=== PATIENT | female | born 1955 | race Two or more races ===

== ENCOUNTER 2017-12-13 16:06 | Inpatient (IN) | payer MEDICAID ==
--- NOTE | 2017-12-13 16:52 | ED Physician Chart ---
ED Chief Complaint/HPI - Patient Information Date Seen:: 12/13/17 Time Seen:: 16:30 Chief Complaint:: gtube removal History of Present Illness:: 62 yr old female with hx of brain aneurysm surgery with complication stroke spasticity trach gtube cva lt paralysis now eating pureed food and they want gtube removal ED Review of Systems - Review of Systems General/Constitutional: No fever ENT: No earache (neck contractures can not move to left and feet contractures and lt arm cotractures through out not able to move her left side) Cardio Vascular: No chest pain Pulmonary: No SOB GI: No vomiting Psychiatric: No anxiety Hematopoietic: No bruising Allergic/Immuno: No urticaria Neurological: No syncope (hx of seizures on keppra and hx of spasticity on baclofen 40 mg twice a day) ED Past Medical History - Past Medical History Past Medical History: Other (brain aneurysm trach hole gtube in place very adherent unable to move out ) ED Physical Exam - Physical Examination General/Constitutional: Alert (has rt bone flap brain surgery three times hydrocephaly and [employer] shunt in place on left) Eyes: Lids, conjuctiva normal Skin: Nl inspection ENMT: External ears, nose nl Other Neck comments:: spastic neck unable to turn fixed on left arm left fixed in position hyperexension at the elbow non mobile at lt shoulder or lt elbow Other Respiratory comments:: mnot expanding lt chest well Cardio Vascular: No murmur, gallop, rubs GI: No tenderness/rebounding/guarding Other Extremities comments:: spastic feet with hyperflexion ED Assessment - Assessment General Assessment: multiple medical problems cva ruptured brain anuerysm spasticity hemiplegia eating pureed food with g- tube imbedded for removal ED Septic Shock - . Is Septic Shock (SBP<90, OR Lactate>4 mmol\L) present?: No ED Reassessment (Disposition) - Diagnosis Diagnosis:: as previously for g-tube removal - Patient Disposition Discharge/Transfer:: Acute Care w/in this hosp Condition at Disposition:: Unchanged
[2017-12-13 17:17] LABS: % BASOPHILS 0.7 % (0.0-2.0); % EOSINOPHILS 3.6 % (0.0-5.0); % LYMPHOCYTES 37.4 % (20.0-50.0); % MONOCYTES 6.8 % (2.0-10.0); % NEUTROPHILS 51.5 % (40.0-80.0); EOSINOPHILE ABSOLUTE 0.2 Th/cmm (0.1-0.4); HEMOGLOBIN 14.1 gm/dL (12-16); LYMPHOCYTE ABSOLUTE 2.5 Th/cmm (1.5-3.0); MEAN CELL VOLUME 93.6 fl (81-100); MEAN CORPUSCULAR HEMOGLOBIN 33.1 pg (27.0-31.0); MEAN CORPUSCULAR HGB CONC 35.4 pg (28.0-36.0); MEAN PLATELET VOLUME 6.9 fl; MONOCYTE ABSOLUTE 0.5 Th/cmm (0.3-1.0); NEUTROPHILE ABSOLUTE 3.5 Th/cmm (1.8-8.0); PLATELET COUNT 307 Th/cmm (150-400); RED BLOOD COUNT 4.27 Mil/cmm (3.80-5.10); RED CELL DISTRIBUTION WIDTH 11.3 % (11.5-20.0); WHITE BLOOD COUNT 6.7 Th/cmm (4.8-10.8)
[2017-12-13 17:29] LABS: ALB/GLOB RATIO 1.4 (1.0-1.8); ALBUMIN 4.1 gm/dL (3.7-5.3); ALKALINE PHOSPHATASE 161 U/L (34-104); ANION GAP 11.6 (7.0-16.0); BILIRUBIN,TOTAL 0.3 mg/dL (0.3-1.0); BUN - UREA NITROGEN 12 mg/dL (7-25); CALCIUM SERUM 9.7 mg/dL (8.6-10.3); CHLORIDE 104 mEq/L (98-107); CREATININE - SERUM 0.6 mg/dL (0.6-1.2); GFR AFRICAN-AMERICAN > 60.0 ml/min (>90); GFR NON AFRICAN-AMERICAN > 60.0 ml/min; GLUCOSE 107 mg/dL (70-105); POTASSIUM SERUM 3.6 mEq/L (3.5-5.1); SGOT 24 U/L (13-39); SGPT/ALT 42 U/L (7-52); SODIUM SERUM 138 mEq/L (136-145); TOTAL PROTEIN,SERUM 7.1 gm/dL (6.0-8.3)
[2017-12-13 20:14] VITALS: BP 135/85
[2017-12-13] MEDS ORDERED: Albuterol Nebulizer 2.5mg/3mL HHN PRN (21:08)
[2017-12-14 05:47] LABS: % BASOPHILS 0.4 % (0.0-2.0); % EOSINOPHILS 1.7 % (0.0-5.0); % LYMPHOCYTES 19.8 % (20.0-50.0); % MONOCYTES 6.3 % (2.0-10.0); % NEUTROPHILS 71.8 % (40.0-80.0); EOSINOPHILE ABSOLUTE 0.1 Th/cmm (0.1-0.4); HEMATOCRIT 39.3 % (41.0-60); HEMOGLOBIN 13.8 gm/dL (12-16); LYMPHOCYTE ABSOLUTE 1.3 Th/cmm (1.5-3.0); MEAN CORPUSCULAR HGB CONC 35.1 pg (28.0-36.0); MEAN PLATELET VOLUME 7.1 fl; MONOCYTE ABSOLUTE 0.4 Th/cmm (0.3-1.0); PLATELET COUNT 292 Th/cmm (150-400); RED BLOOD COUNT 4.19 Mil/cmm (3.80-5.10); RED CELL DISTRIBUTION WIDTH 11.7 % (11.5-20.0); WHITE BLOOD COUNT 6.8 Th/cmm (4.8-10.8)
[2017-12-14 06:16] LABS: ALB/GLOB RATIO 1.2 (1.0-1.8); ALBUMIN 3.8 gm/dL (3.7-5.3); ALKALINE PHOSPHATASE 154 U/L (34-104); ANION GAP 13.6 (7.0-16.0); BILIRUBIN,TOTAL 0.4 mg/dL (0.3-1.0); BUN - UREA NITROGEN 11 mg/dL (7-25); CALCIUM SERUM 9.9 mg/dL (8.6-10.3); CARBON DIOXIDE 24.3 mEq/L (21.0-31.0); CHLORIDE 106 mEq/L (98-107); CREATININE - SERUM 0.6 mg/dL (0.6-1.2); GFR AFRICAN-AMERICAN > 60.0 ml/min (>90); GFR NON AFRICAN-AMERICAN > 60.0 ml/min; GLUCOSE 112 mg/dL (70-105); POTASSIUM SERUM 3.9 mEq/L (3.5-5.1); SGOT 20 U/L (13-39); SGPT/ALT 37 U/L (7-52); SODIUM SERUM 140 mEq/L (136-145)
[2017-12-14] MEDS: D5-0.45NS 1,000 ML IV SCH ×2 (08:41→21:47)
[2017-12-14] MEDS: Levetiracetam 500 mg/5mL 5mL UDSyr *for ORAL USE ONLY GT SCH ×2 (08:42→16:10)
[2017-12-14] MEDS: Vitamin D3 2,000 IU SGL PO SCH (08:42)
[2017-12-14] MEDS: Lactulose 10 Gm/15 mL 30mL UDC GT SCH ×2 (08:42→16:11)
[2017-12-14] MEDS: Chlorhexidine Gluconate 0.12% 480mL Bottle MM SCH ×2 (08:43→16:12)
[2017-12-14] MEDS ORDERED: Non-Formulary Item 1 EA (Protein Hydrolysate,Milk [Liquid Protein Fortifier] 30 ML) GT SCH (09:00)
--- NOTE | 2017-12-14 09:30 | Diagnostic Imaging Report ---
Chest x-ray single view History: Shortness of breath Comparison: None The heart size is normal. No focal pulmonary parenchymal processes. No hilar or mediastinal abnormalities. Impression: No acute abnormalities
--- NOTE | 2017-12-14 09:30 | Diagnostic Imaging Report ---
Exam: KUB of the abdomen. HISTORY: G-tube removal. Findings: Supine examination the abdomen reviewed the study demonstrates fecal impaction. Gastrostomy tube overlying the stomach. Inferior vena cava filter is noted. The chest at shunt catheter is noted. Bony structures intact. IMPRESSION: Impaction.
--- NOTE | 2017-12-14 09:36 | Consultation ---
DATE OF CONSULTATION: 12/14/2017 INPATIENT GASTROINTESTINAL CONSULTATION CONSULTING PHYSICIAN: Dr. Burgos. REASON FOR CONSULTATION: Removal of her G-tube. HISTORY OF PRESENT ILLNESS: The patient is a 62-year-old female with history of brain aneurysm, which was complicated by a stroke that transiently had required tracheostomy tube and G-tube for feeding. However, the patient has recovered the ability to eat and is tolerating diet and wishes to have her G-tube removed. Apparently, this was attempted in the Emergency Room, but the ER physician was unable to remove the G-tube as it was stiff, but the patient was admitted for this reason. She currently has no complaints, would like the G-tube removed. PAST MEDICAL HISTORY: Brain aneurysm with a previous stroke causing paralysis and dysphagia transiently. PAST SURGICAL HISTORY: G-tube placement, tracheostomy placement. FAMILY HISTORY: Noncontributory. SOCIAL HISTORY: The patient does not smoke, drink or use illicit drugs. She is a resident of a nursing facility. ALLERGIES: SHE REPORTS AN ALLERGY TO PHENYTOIN. CURRENT MEDICATIONS: Tylenol, albuterol, artificial tears, baclofen, bisacodyl, chlorhexidine, famotidine, heparin subQ, hydralazine, ibuprofen, lacosamide, lactulose, Keppra, psyllium, senna, tizanidine, vitamin D. REVIEW OF SYSTEMS: A 12-point review of systems was performed. The patient is negative other than the pertinent positives mentioned in the history of present illness. PHYSICAL EXAMINATION: VITAL SIGNS: Blood pressure is 148/81, pulse 99 beats per minute, temperature 99.8, oxygenation 96%. GENERAL: The patient is lying flat in bed, alert, oriented x 3. She is in no apparent distress. HEAD, EYES, EARS, NOSE AND THROAT: Normocephalic, atraumatic appearing head. Pupils are equal and reactive to light. Extraocular muscles appear to be intact. Moist mucous membranes. NECK: There is a previously healed tracheostomy site. CHEST: Reduced breath sounds with some crackles at the bases. CARDIOVASCULAR: S1, S2 present, tachycardic. ABDOMEN: There is a G-tube in the left upper quadrant. It appears to be old. The site appears clean, dry and intact without erythema. There is no abdominal tenderness. Soft on palpation. No guarding. EXTREMITIES: Contracted pitting edema bilaterally. Pulses are not present. SKIN: There is no obvious jaundice. LABORATORY DATA: White blood cell count is 6.8, hemoglobin 13.8, platelet count 292. Sodium 140, BUN 11, creatinine 0.6, total bilirubin 0.4, AST 20, ALT 37. No abdominal imaging has yet been performed. IMPRESSION: This is a 62-year-old female with a previous brain aneurysm and stroke requiring a previous G-tube placement and tracheostomy. The patient has since recovered the ability to eat and is on a pureed diet and wishes to have her G-tube removed. RECOMMENDATIONS: 1. Dysphagia with previous G-tube. 2. Brain aneurysm, previous stroke. DISCUSSION: Given that patient is able to tolerate a pureed diet at this point, it is reasonable to remove her G-tube as she does not want this for infection. The G-tube has been removed at bedside by myself using the pull traction method. This was a little bit stiff coming out, but then eventually was able to be removed without issue. There was a small amount of bleeding from the gastrocutaneous fistula and a bandage was placed over this and taped in place. RECOMMENDATIONS: 1. We will watch the site of the previous G-tube for any signs of bleeding or infection going forward. 2. Maintain n.p.o. for at least 24 hours to try to let this gastrocutaneous close before we can put her back on her diet. In the meantime, we will have her on D5 half NS 75 mL an hour. 3. Management of the patient's other chronic issue as per primary. Thank you for allowing me to participate in her care. Please call with any further questions. JOB# [id number]
--- NOTE | 2017-12-14 09:43 | History and Physical ---
History of Present Illness - HPI Chief Complaint: DC PEG-tube HPI: Patient was send from SNF to discontinue PEG tube. Vital Signs: Last Vital Signs Temp 99.8 F 12/14/17 04:00 Pulse 93 12/14/17 07:00 Resp 16 12/14/17 07:00 BP 148/81 12/14/17 04:00 Pulse Ox 96 12/14/17 07:00 Past Medical History Cardiovascular: Report: No Pertinent Hx Pulmonary: Report: No Pertinent Hx NURSING INFORMATION SYSTEMS COORDINATOR: Report: CVA, Other (Hx of Brain aneurism with left side hemiparalysis) Psych: Report: No Pertinent Hx Musculoskeletal: Report: Other (Hemiparalysis left side) Rheumatologic: Report: No pertinent Hx Infectious Disease: Report: No Pertinent Hx Renal/: Report: No Pertinent Hx Endocrine: Report: No Pertinent Hx, Hyperthyroidism - Past Surgical History Past Surgical History: Other (Craniotomy) Family Medical History - Family Member Sister History Unknown: Yes Social History Smoke: No Alcohol: None Drugs: None Lives: [facility] Domestic Violence: Negative - Medications Home Medications: Home Medication Medication Instructions Recorded Type Acetaminophen [Tylenol 160 mg GT Q4HR PRN 12/13/17 History 650mg/20.3mL Suspension] Albuterol Nebulizer 2.5mg/3mL 2.5 mg IH Q4HR PRN 12/13/17 History [Albuterol Neb UD*] Baclofen [Baclofen*] 40 mg GT TID 12/13/17 History Bisacodyl [Dulcolax 10 Mg Supp] 10 mg RC DAILY PRN 12/13/17 History Chlorhexidine Gluconate [Peridex] 5 ml MM BID 12/13/17 History Cholecalciferol (Vitamin D3) 2,000 iu GT DAILY 12/13/17 History [Vitamin D3] Dextran 70/Hypromellose 1 each OP HS PRN 12/13/17 History [Artificial Tears] Heparin Sod,Porcine/0.9 % NaCl 5,000 unit SUBQ Q12H 12/13/17 History [Heparin 5,000 Unit/5 ml-Ns] Hydralazine [Apresoline*] 25 mg GT Q6H PRN 12/13/17 History Ibuprofen 600 mg GT TID PRN 12/13/17 History Lacosamide [Vimpat] 100 mg GT BID 12/13/17 History Lactulose 45 ml GT BID 12/13/17 History Levetiracetam [Keppra*] 1,000 mg GT BID 12/13/17 History Protein Hydrolysate,Milk [Liquid 30 ml GT DAILY 12/13/17 History Protein Fortifier] Psyllium [Metamucil] 1 pkt GT BID 12/13/17 History Ranitidine HCl [Zantac] 150 mg GT DAILY 12/13/17 History Sennakot 8.6 mg GT HS 12/13/17 History Tizanidine HCl [Zanaflex] 2 mg GT BID 12/13/17 History - Allergies Allergies/Adverse Reactions: Allergies Allergy/AdvReac Type Severity Reaction Status Date / Time phenytoin Allergy Verified 12/13/17 16:51 Review of Systems - Review of Systems Constitutional: Report: No Significant Eyes: Report: No Significant ENT: Report: No Significant Respiratory: Report: No Significant Cardiovascular: Report: No Significant Genitourinary: Report: No Significant Musculoskeletal: Report: Other (Hemiparalysis left side) Skin: Report: No Significant Neurological: Report: Weakness, Seizures Physical Exam - Physical Exam HEENT: Report: Ears Nose Throat within normal limits Neck: Report: Within normal limits Cardiovascular Systems: Report: Regular, Rate and Rhythm Respiratory: Report: Breath Sounds are within normal limits Abdomen: Report: Non-tender to palpation, PEG site is clean Back: Report: Inspection of back is within normal limits. Extremities: Report: Non-tender to palpation., Extremities are contracted, Other (Hemiparalysis left side) Skin: Report: Color of skin is within normal limits Neuro/Psych: Report: Mood affect is within normal limits, Weakness or sensory loss noted. - Lab Results All Lab Results last 24 hours: Laboratory Results - last 24 hr 12/13/17 12/13/17 12/14/17 17:10 17:10 05:00 WBC 6.7 6.8 RBC 4.27 4.19 Hgb 14.1 13.8 Hct 40.0 L 39.3 L MCV 93.6 94.0 MCH 33.1 H 33.0 H MCHC Differential 35.4 35.1 RDW 11.3 L 11.7 Plt Count 307 292 MPV 6.9 7.1 Neutrophils % 51.5 71.8 Lymphocytes % 37.4 19.8 L Monocytes % 6.8 6.3 Eosinophils % 3.6 1.7 Basophils % 0.7 0.4 Sodium 138 Potassium 3.6 Chloride 104 Carbon Dioxide 26.0 Anion Gap 11.6 BUN 12 Creatinine 0.6 Est GFR ( Amer) > 60.0 Est GFR (Non-Af Amer) > 60.0 BUN/Creatinine Ratio 20.0 Glucose 107 H Calcium 9.7 Total Bilirubin 0.3 AST 24 ALT 42 Alkaline Phosphatase 161 H Total Protein 7.1 Albumin 4.1 Globulin 3.0 Albumin/Globulin Ratio 1.4 TSH 12/14/17 12/14/17 05:00 05:00 WBC RBC Hgb Hct MCV MCH MCHC Differential RDW Plt Count MPV Neutrophils % Lymphocytes % Monocytes % Eosinophils % Basophils % Sodium 140 Potassium 3.9 Chloride 106 Carbon Dioxide 24.3 Anion Gap 13.6 BUN 11 Creatinine 0.6 Est GFR ( Amer) > 60.0 Est GFR (Non-Af Amer) > 60.0 BUN/Creatinine Ratio 18.3 Glucose 112 H Calcium 9.9 Total Bilirubin 0.4 AST 20 ALT 37 Alkaline Phosphatase 154 H Total Protein 7.0 Albumin 3.8 Globulin 3.2 Albumin/Globulin Ratio 1.2 TSH 2.43 - Assessment Assessment: Current Active Problems Problem Status Onset REQUEST FOR PEG REMOVAL Acute Patient is awake, alert, calm, in no acute distress. Dx: Peg in place, Hx of brain aneurism, Hx of craniotomy, Seizure disorder, COPD, S/P DVT, S/P shunt. - Plan Plan: PEG will be discontinue by GI, will continue with SNF meds. Will continue to monitor,
[2017-12-14] MEDS ORDERED: Polyvinyl Alcohol Ophth Soln 15 mL Bottle EACH EYE PRN (21:00)
--- NOTE | 2017-12-15 07:54 | GI Progress Note ---
Subjective - Review of Systems Service Date: 12/15/17 Subjective: No new events, previous G tube site c/d/i Objective - Results Result Diagrams: 12/14/17 05:00 12/14/17 05:00 Recent Labs: Laboratory Last Values WBC 6.8 Th/cmm (4.8-10.8) 12/14/17 05:00 RBC 4.19 Mil/cmm (3.80-5.10) 12/14/17 05:00 Hgb 13.8 gm/dL (12-16) 12/14/17 05:00 Hct 39.3 % (41.0-60) L 12/14/17 05:00 MCV 94.0 fl (81-100) 12/14/17 05:00 MCH 33.0 pg (27.0-31.0) H 12/14/17 05:00 MCHC Differential 35.1 pg (28.0-36.0) 12/14/17 05:00 RDW 11.7 % (11.5-20.0) 12/14/17 05:00 Plt Count 292 Th/cmm (150-400) 12/14/17 05:00 MPV 7.1 fl 12/14/17 05:00 Neutrophils % 71.8 % (40.0-80.0) 12/14/17 05:00 Lymphocytes % 19.8 % (20.0-50.0) L 12/14/17 05:00 Monocytes % 6.3 % (2.0-10.0) 12/14/17 05:00 Eosinophils % 1.7 % (0.0-5.0) 12/14/17 05:00 Basophils % 0.4 % (0.0-2.0) 12/14/17 05:00 Sodium 140 mEq/L (136-145) 12/14/17 05:00 Potassium 3.9 mEq/L (3.5-5.1) 12/14/17 05:00 Chloride 106 mEq/L (98-107) 12/14/17 05:00 Carbon Dioxide 24.3 mEq/L (21.0-31.0) 12/14/17 05:00 Anion Gap 13.6 (7.0-16.0) 12/14/17 05:00 BUN 11 mg/dL (7-25) 12/14/17 05:00 Creatinine 0.6 mg/dL (0.6-1.2) 12/14/17 05:00 Est GFR ( Amer) > 60.0 ml/min (>90) 12/14/17 05:00 Est GFR (Non-Af Amer) > 60.0 ml/min 12/14/17 05:00 BUN/Creatinine Ratio 18.3 12/14/17 05:00 Glucose 112 mg/dL (70-105) H 12/14/17 05:00 Calcium 9.9 mg/dL (8.6-10.3) 12/14/17 05:00 Total Bilirubin 0.4 mg/dL (0.3-1.0) 12/14/17 05:00 AST 20 U/L (13-39) 12/14/17 05:00 ALT 37 U/L (7-52) 12/14/17 05:00 Alkaline Phosphatase 154 U/L (34-104) H 12/14/17 05:00 Total Protein 7.0 gm/dL (6.0-8.3) 12/14/17 05:00 Albumin 3.8 gm/dL (3.7-5.3) 12/14/17 05:00 Globulin 3.2 gm/dL 12/14/17 05:00 Albumin/Globulin Ratio 1.2 (1.0-1.8) 12/14/17 05:00 TSH 2.43 uIU/ml (0.34-5.60) 12/14/17 05:00 - Physical Exam Vitals and I&O: Vital Signs Temp 98.3 F 12/15/17 04:00 Pulse 82 12/15/17 06:33 Resp 18 12/15/17 06:33 BP 117/68 12/15/17 04:00 Pulse Ox 94 12/15/17 06:33 Intake & Output 12/14/17 12/15/17 12/15/17 18:59 06:59 18:59 Intake Total 200 982.5 Balance 200 982.5 Weight (lbs) 91.626 kg 92.986 kg Intake: Intake, IV Amount 982.5 D5-0.45NS 1,000 ml @ 75 982.5 mls/hr IV .[id number] [facility] Rx #:[id number] Oral 200 Other: # Voids 3 3 # Bowel Movements 1 Weight Source Bedscale Bedscale Active Medications: Current Medications Acetaminophen (Tylenol 650mg/20.3ml Suspension) 650 mg GT Q4HR PRN PRN Reason: PAIN AND TEMP >100 Stop: 02/11/18 21:07 Last Admin: 12/14/17 14:03 Dose: 650 mg Albuterol Sulfate (Albuterol 2.5mg/3ml Neb Ud) 2.5 mg HHN Q4HR PRN PRN Reason: Wheezing Stop: 02/11/18 21:07 Artificial Tears (Artificial Tears Ophth Soln) 1 drop EACH EYE HS PRN PRN Reason: DRY EYES Stop: 02/12/18 20:59 Baclofen (Lioresal) 40 mg GT TID [facility] Stop: 02/12/18 08:59 Last Admin: 12/14/17 20:23 Dose: 40 mg Bisacodyl (Dulcolax 10 Mg Supp) 10 mg RC DAILY PRN PRN Reason: Constipation Stop: 02/11/18 21:07 Chlorhexidine Gluconate (Peridex) 5 ml MM BID [facility] Stop: 02/12/18 08:59 Last Admin: 12/14/17 16:12 Dose: 5 ml Famotidine (Pepcid) 20 mg GT DAILY [facility] Stop: 02/12/18 08:59 Last Admin: 12/14/17 08:43 Dose: 20 mg Heparin Sodium (Porcine) (Heparin) 5,000 units SUBQ Q12H [facility] Stop: 02/12/18 08:59 Last Admin: 12/14/17 20:23 Dose: 5,000 units Hydralazine HCl (Apresoline) 25 mg GT Q6H PRN PRN Reason: HTN Stop: 02/11/18 21:07 Dextrose/Sodium Chloride (D5-0.45ns) 1,000 mls @ 75 mls/hr IV .[id number] [facility] Stop: 02/12/18 08:14 Last Admin: 12/14/17 21:47 Dose: 75 mls/hr Ibuprofen (Motrin) 600 mg GT TID PRN PRN Reason: MODERATE PAIN Stop: 02/11/18 21:07 Lacosamide (Vimpat) 100 mg GT BID [facility] Stop: 02/12/18 08:59 Last Admin: 12/14/17 16:11 Dose: 100 mg Lactulose (Cephulac) 45 gm GT BID [facility] Stop: 02/12/18 08:59 Last Admin: 12/14/17 16:11 Dose: 45 gm Levetiracetam (Keppra) 1,000 mg GT BID [facility] Stop: 02/12/18 08:59 Last Admin: 12/14/17 16:10 Dose: 1,000 mg Psyllium Hydrophilic Mucilloid (Metamucil) 1 pkt GT BID [facility] Stop: 02/12/18 08:59 Last Admin: 12/14/17 16:11 Dose: 1 pkt Senna (Senna) 8.6 mg GT HS [facility] Stop: 02/12/18 20:59 Last Admin: 12/14/17 20:24 Dose: 8.6 mg Tizanidine HCl (Zanaflex) 2 mg GT BID [facility] Stop: 02/12/18 08:59 Last Admin: 12/14/17 16:12 Dose: 2 mg Vitamin D (Vitamin D3) 2,000 iu PO DAILY [facility] Stop: 02/12/18 08:59 Last Admin: 12/14/17 08:42 Dose: 2,000 iu General: Alert, Oriented x3 HEENT: Atraumatic Cardiovascular: Regular rate Abdomen: Bowel sounds, Soft, no Tender, no Hepatomegaly, no Splenomegaly, no Distended, no Rebound, no Mass Extremities: no Clubbing Neurological: no Normal gait Skin: no Rash Psych/Mental Status: Mental status NL Assessment/Plan - Problem List Patient Problems: All Active Problems REQUEST FOR PEG REMOVAL (Acute) - Assessment Assessment: # Brain aneurysm # CVA # Dysphagia # Previous G tube Pt now taking in nutrition by mouth, and had requested G tube be removed. This was performed at bedside without issue on 12/14. Her site appears c/d/i Plan: - can start feeding today. Slowly advance as tolerated - if dysphagia returns, will need another G tube inserted via endoscopy GI to see as needed, please call with any questions
[2017-12-15] MEDS: Lactulose 10 Gm/15 mL 30mL UDC GT SCH (08:41)
[2017-12-15] MEDS: Vitamin D3 2,000 IU SGL PO SCH (08:42)
[2017-12-15] MEDS: Levetiracetam 500 mg/5mL 5mL UDSyr *for ORAL USE ONLY GT SCH (08:42)
[2017-12-15] MEDS: Chlorhexidine Gluconate 0.12% 480mL Bottle MM SCH (08:42)
--- NOTE | 2017-12-15 09:36 | Discharge Summary ---
General Discharge Summary - Discharge Summary Date of Admission: 12/13/17 Admitting Diagnosis: Request of PEG removal. Discharge Date: 12/15/17 Discharge Diagnosis: PEG was removed, Hemiplegia, Hx of ropture of brain aneurism, Hx of Craniotomy, Seizure disorder, COPD, S/P DVT, S/P Shunt. Hospital Course: Patient was admmited and the following day PEG was removed, Patient was put in NPO and had IV NS, the second day patient was started with diet, PEG wound was no bleeding or liking. Condition at Discharge: Stable Disposition: Discharge/Transfered to SNF Home Medications: Home Medication Medication Instructions Recorded Type Acetaminophen [Tylenol 160 mg GT Q4HR PRN 12/13/17 History 650mg/20.3mL Suspension] Albuterol Nebulizer 2.5mg/3mL 2.5 mg IH Q4HR PRN 12/13/17 History [Albuterol Neb UD*] Baclofen [Baclofen*] 40 mg GT TID 12/13/17 History Bisacodyl [Dulcolax 10 Mg Supp] 10 mg RC DAILY PRN 12/13/17 History Chlorhexidine Gluconate [Peridex] 5 ml MM BID 12/13/17 History Cholecalciferol (Vitamin D3) 2,000 iu GT DAILY 12/13/17 History [Vitamin D3] Dextran 70/Hypromellose 1 each OP HS PRN 12/13/17 History [Artificial Tears] Heparin Sod,Porcine/0.9 % NaCl 5,000 unit SUBQ Q12H 12/13/17 History [Heparin 5,000 Unit/5 ml-Ns] Hydralazine [Apresoline*] 25 mg GT Q6H PRN 12/13/17 History Ibuprofen 600 mg GT TID PRN 12/13/17 History Lacosamide [Vimpat] 100 mg GT BID 12/13/17 History Lactulose 45 ml GT BID 12/13/17 History Levetiracetam [Keppra*] 1,000 mg GT BID 12/13/17 History Protein Hydrolysate,Milk [Liquid 30 ml GT DAILY 12/13/17 History Protein Fortifier] Psyllium [Metamucil] 1 pkt GT BID 12/13/17 History Ranitidine HCl [Zantac] 150 mg GT DAILY 12/13/17 History Sennakot 8.6 mg GT HS 12/13/17 History Tizanidine HCl [Zanaflex] 2 mg GT BID 12/13/17 History Inpatient Medications: Current Medications Acetaminophen (Tylenol 650mg/20.3ml Suspension) 650 mg GT Q4HR PRN PRN Reason: PAIN AND TEMP >100 Stop: 02/11/18 21:07 Last Admin: 12/14/17 14:03 Dose: 650 mg Albuterol Sulfate (Albuterol 2.5mg/3ml Neb Ud) 2.5 mg HHN Q4HR PRN PRN Reason: Wheezing Stop: 02/11/18 21:07 Artificial Tears (Artificial Tears Ophth Soln) 1 drop EACH EYE HS PRN PRN Reason: DRY EYES Stop: 02/12/18 20:59 Baclofen (Lioresal) 40 mg GT TID [facility] Stop: 02/12/18 08:59 Last Admin: 12/15/17 08:41 Dose: 40 mg Bisacodyl (Dulcolax 10 Mg Supp) 10 mg RC DAILY PRN PRN Reason: Constipation Stop: 02/11/18 21:07 Chlorhexidine Gluconate (Peridex) 5 ml MM BID [facility] Stop: 02/12/18 08:59 Last Admin: 12/15/17 08:42 Dose: 5 ml Famotidine (Pepcid) 20 mg GT DAILY [facility] Stop: 02/12/18 08:59 Last Admin: 12/15/17 08:42 Dose: 20 mg Heparin Sodium (Porcine) (Heparin) 5,000 units SUBQ Q12H [facility] Stop: 02/12/18 08:59 Last Admin: 12/15/17 08:42 Dose: 5,000 units Hydralazine HCl (Apresoline) 25 mg GT Q6H PRN PRN Reason: HTN Stop: 02/11/18 21:07 Dextrose/Sodium Chloride (D5-0.45ns) 1,000 mls @ 75 mls/hr IV .[id number] [facility] Stop: 02/12/18 08:14 Last Admin: 12/14/17 21:47 Dose: 75 mls/hr Ibuprofen (Motrin) 600 mg GT TID PRN PRN Reason: MODERATE PAIN Stop: 02/11/18 21:07 Lacosamide (Vimpat) 100 mg GT BID [facility] Stop: 02/12/18 08:59 Last Admin: 12/15/17 08:42 Dose: 100 mg Lactulose (Cephulac) 45 gm GT BID [facility] Stop: 02/12/18 08:59 Last Admin: 12/15/17 08:41 Dose: 45 gm Levetiracetam (Keppra) 1,000 mg GT BID [facility] Stop: 02/12/18 08:59 Last Admin: 12/15/17 08:42 Dose: 1,000 mg Psyllium Hydrophilic Mucilloid (Metamucil) 1 pkt GT BID [facility] Stop: 02/12/18 08:59 Last Admin: 12/15/17 08:42 Dose: 1 pkt Senna (Senna) 8.6 mg GT HS [facility] Stop: 02/12/18 20:59 Last Admin: 12/14/17 20:24 Dose: 8.6 mg Tizanidine HCl (Zanaflex) 2 mg GT BID [facility] Stop: 02/12/18 08:59 Last Admin: 12/15/17 08:42 Dose: 2 mg Vitamin D (Vitamin D3) 2,000 iu PO DAILY [facility] Stop: 02/12/18 08:59 Last Admin: 12/15/17 08:42 Dose: 2,000 iu Activity: As Tolerated Discharge Diet: Thickened Liquids Consults and Follow-Up: Mulugeta Burgos [Primary Care Provider] - Consulting Speciality: Neurology Instructions: Epilepsy, [id number], Hypertension, [id number]
[2017-12-15] MEDS: D5-0.45NS 1,000 ML IV SCH (11:25)
== END 2017-12-15 16:07 | DRG 254 ==
LOC: ER 16:06 → MSI 18:16
PROVIDERS: ADMIT General Practice; ATTEND General Practice
PROC: 0DP6XUZ Removal of Feeding Device from Stomach, External Approach (ICD-10-PCS; principal; 2017-12-14)
DX: Z43.1 Encounter for attention to gastrostomy (principal); R53.2 Functional quadriplegia; R13.10 Dysphagia, unspecified; I69.354 Hemiplegia and hemiparesis following cerebral infarction affecting left non-dominant side; G40.909 Epilepsy, unspecified, not intractable, without status epilepticus; J44.9 Chronic obstructive pulmonary disease, unspecified; Z86.718 Personal history of other venous thrombosis and embolism; Z79.01 Long term (current) use of anticoagulants; Z88.8 Allergy status to other drugs, medicaments and biological substances; Z79.899 Other long term (current) drug therapy
CPT/HCPCS: 36415-UA; 71045-TC; 74000-TC; 80053-TC; 84443-TC; 85025-TC; 94760; J1644; Z7610